=== PATIENT | female | born 1955 | race Caucasian/White ===

== ENCOUNTER 2021-06-25 06:32 | Day surgery (SDC) | payer OTHER ==
[~2021-06-25] VITALS: Ht 162.6 cm; Wt 72.6 kg
[2021-06-25] MEDS ORDERED: fentaNYL citrate 0.05 MG/ML VIAL ONE (08:26)
[2021-06-25] MEDS ORDERED: LIDOCAINE 2% 100 MG/5 ML UJET TP ONE ×2 (08:26→08:55)
[2021-06-25] MEDS ORDERED: MIDAZOLAM 5 MG/5 ML VIAL ONE (08:29)
[2021-06-25] MEDS ORDERED: MIDAZOLAM 2 MG/2 ML VIAL IVP ONE (08:55)
[2021-06-25] MEDS ORDERED: fentaNYL citrate 0.05 MG/ML VIAL IVP ONE (08:55)
== END 2021-06-25 09:53 | disposition home or self-care (01) ==
LOC: MDS 06:32 → MMU 06:40 → MDS 09:53
PROVIDERS: ATTEND Internal Medicine Gastroenterology
DX: Z12.11 Encounter for screening for malignant neoplasm of colon (principal); K57.30 Diverticulosis of large intestine without perforation or abscess without bleeding; K57.32 Diverticulitis of large intestine without perforation or abscess without bleeding; K29.50 Unspecified chronic gastritis without bleeding; I10 Essential (primary) hypertension; Z79.899 Other long term (current) drug therapy
CPT/HCPCS: 36415; 43239; 45378; 86677; J2250; J3010